=== PATIENT | female | born 1975 | race American Indian/Alaskan Native ===

== ENCOUNTER 2019-02-26 13:18 | Emergency (ER) | payer OTHER, SELFPAY ==
--- NOTE | 2019-02-26 15:34 | RAD ---
2 views right hip: 02/26/2019 COMPARISON: None HISTORY: Right hip pain, no history of trauma FINDINGS: Mild superior joint space narrowing. Mild lateral acetabular osteophyte formation. No acute fracture or dislocation. IMPRESSION: No acute findings.
== END 2019-02-26 15:49 | disposition home or self-care (01) ==
LOC: ERS 13:18
DX: M25.551 Pain in right hip (principal)

== ENCOUNTER 2022-10-04 10:01 | Inpatient (IN) | payer OTHER, SELFPAY ==
[~2022-10-04 10:01] MED LIST: Iopamidol-370 76% 500 ML MDV (1 ML CHARGE) ONE
[2022-10-04 11:14] LABS: SARS-CoV-2 NAA Rapid Test DETECTED (NotDetected)
[2022-10-04 12:12] LABS: #Monocytes 0.5 thou/uL (0.11-0.59); %Basophils 0.3 % (0.0-1.0); %Lymphocytes 8.1 % (21.0-51.0); %Monocytes 6.7 % (0.0-10.0); %Neutrophils 84.6 % (42.0-75.0); Hematocrit 39.6 % (36.0-47.0); Hemoglobin 13.5 g/dL (12.0-16.0); Mean Corpuscular HGB CONC 34.1 g/dL (32.0-36.0); Mean Corpuscular Hemoglobin 29.9 pg (27.0-31.0); Mean Corpuscular Volume 87.8 fl (78.0-98.0); Mean Platelet Volume 9.5 fL (7.4-10.4); Platelet Count 218 10x3/uL (130-400); RBC Distribution Width 12.7 % (11.5-14.5); Red Blood Cell (RBC) Count 4.51 mill/uL (4.20-5.40); White Blood Cell (WBC) Count 7.1 10x3/uL (4.8-10.8)
[2022-10-04 12:34] LABS: ALT (SGPT) 15 U/L (8-55); AST (SGOT) 21 U/L (5-34); Albumin 3.7 g/dL (3.5-5.0); Alkaline Phosphatase 97 U/L (40-110); Anion Gap 13 mmol/L (10-20); BUN (Urea Nitrogen) 10 mg/dL (7.0-18.7); Bilirubin, Total 0.4 mg/dL (0.2-1.2); Calc. Creatinine Clearance 0 mL/min (70-130); Calcium 9.2 mg/dL (7.8-10.44); Carbon Dioxide 26 mmol/L (22-29); Chloride 102 mmol/L (98-107); Estimated GFR 87; Globulin 3.1 g/dL (2.4-3.5); Glucose 99 mg/dL (70-105); Lipase 17 U/L (8-78); Potassium 3.5 mmol/L (3.5-5.1); Protein, Total 6.8 g/dL (6.0-8.3); Sodium 137 mmol/L (136-145)
[2022-10-04] MEDS ORDERED: Ketorolac Tromethamine 30 MG/ML VIAL ONE (12:40)
[2022-10-04] MEDS ORDERED: Ondansetron PF 4 MG/2 ML Vial ONE (12:40)
[2022-10-04] MEDS ORDERED: Dicyclomine 20 MG/2 ML VIAL ONE (12:40)
[2022-10-04 12:57] LABS: Bacteria/HPF None Seen HPF (None Seen); Bilirubin Negative (Negative); Blood, Urine Negative (Negative); CAUTI Indications for Culture Dysuria,urgency,freq; Clarity Clear (Clear); Glucose, Urine (Dipstick) Normal (Negative); Ketone, Urine Negative (Negative); Leukocyte Negative Leu/uL (Negative); Nitrite Negative (Negative); Protein, Urine (Dipstick) 100 mg/dL (Neg-Trace); RBC/HPF 0-3 HPF (0-3); Specific Gravity, Urine 1.045 (1.002-1.036); Squamous Epithelial 0-3 HPF (0-3); Urobilinogen 3 mg/dL (Less than 2)
[2022-10-04 13:00] LABS: Urine Culture Reflex No No
[2022-10-04] MEDS ORDERED: Morphine 4 MG/ML VIAL ONE (15:13)
[2022-10-04] MEDS ORDERED: metroNIDAZOLE 500 MG/100 ML BAG ONE (15:13)
[2022-10-04 16:36] VITALS: BMI 34.7
[2022-10-04] MEDS: Lactated Ringer's 1,000 ML IV SCH (17:35)
[2022-10-04] MEDS: Dicyclomine 20 MG TAB PO SCH ×2 (17:36→20:35)
[2022-10-04] MEDS: Acetaminophen 325 MG TAB PO PRN (17:43)
[2022-10-04] MEDS: Heparin 5,000 UNITS/ML VIAL SC SCH (20:35)
[2022-10-04] MEDS: Pantoprazole 40 MG VIAL IVP SCH (20:35)
[2022-10-04] MEDS: Ondansetron PF 4 MG/2 ML Vial IVP PRN (20:38)
[2022-10-04] MEDS: HYDROcodone/Acetaminophen 5/325 mg Tablet PO PRN (20:38)
[2022-10-04] MEDS ORDERED: Famotidine 20 MG TAB PO SCH (21:00)
[2022-10-04] MEDS: metroNIDAZOLE 500 MG in Premix Bag 1 BAG IVPB SCH (22:43)
[2022-10-05] MEDS: HYDROcodone/Acetaminophen 5/325 mg Tablet PO PRN ×4 (00:10→20:16)
[2022-10-05] MEDS: metroNIDAZOLE 500 MG in Premix Bag 1 BAG IVPB SCH ×3 (05:31→23:03)
[2022-10-05] MEDS: Ondansetron PF 4 MG/2 ML Vial IVP PRN ×3 (05:31→20:14)
[2022-10-05] MEDS: Lactated Ringer's 1,000 ML IV SCH ×3 (05:31→23:03)
[2022-10-05 06:48] LABS: Hematocrit 32.1 % (36.0-47.0); Hemoglobin 10.7 g/dL (12.0-16.0); Mean Corpuscular HGB CONC 33.3 g/dL (32.0-36.0); Mean Corpuscular Volume 89.9 fl (78.0-98.0); Mean Platelet Volume 10.1 fL (7.4-10.4); Platelet Count 207 10x3/uL (130-400); RBC Distribution Width 12.6 % (11.5-14.5); Red Blood Cell (RBC) Count 3.57 mill/uL (4.20-5.40); White Blood Cell (WBC) Count 7.6 10x3/uL (4.8-10.8)
[2022-10-05 07:02] LABS: Delete Auto Diff?? YES; Manual Diff?? YES
[2022-10-05 07:10] LABS: Anion Gap 10 mmol/L (10-20); BUN (Urea Nitrogen) 7 mg/dL (7.0-18.7); Calc. Creatinine Clearance 106 mL/min (70-130); Calcium 8.1 mg/dL (7.8-10.44); Carbon Dioxide 25 mmol/L (22-29); Chloride 104 mmol/L (98-107); Estimated GFR 81; Glucose 111 mg/dL (70-105); Potassium 3.2 mmol/L (3.5-5.1); Sodium 136 mmol/L (136-145)
[2022-10-05 07:30] LABS: Band 44 % (5-11); CellaVision Operator ID LAB.KB; Lymphocytes 10 % (21-51); Monocytes 9 % (0-10); Myelocyte 1 % (0-0); Neutrophil 35 % (42-75); Platelet Adequacy Comment Platelets Normal; Polychromasia SLIGHT = 2-3 cells HPF (0-2); Smudge Cells 12.6 %; Total Cell Count 103
[2022-10-05] MEDS ORDERED: Potassium Chloride 20 MEQ TAB PO SCH (08:00)
[2022-10-05] MEDS: Zinc Sulfate 220 MG CAP PO SCH (08:58)
[2022-10-05] MEDS: Pantoprazole 40 MG VIAL IVP SCH ×2 (08:58→20:15)
[2022-10-05] MEDS: Dicyclomine 20 MG TAB PO SCH ×4 (08:58→20:14)
[2022-10-05] MEDS: Heparin 5,000 UNITS/ML VIAL SC SCH ×2 (08:58→20:15)
[2022-10-05] MEDS: Ascorbic Acid 500 mg Chewable Tablet PO SCH (08:58)
[2022-10-05] MEDS: Cholecalciferol 1,000 UNITS (25 MCG) TAB PO SCH (08:58)
[2022-10-05] MEDS: Acetaminophen 325 MG TAB PO PRN (13:03)
[2022-10-05] MEDS ORDERED: Metoclopramide HCl 10 MG/2 ML VIAL IVP SCH (23:00)
[2022-10-06] MEDS: metroNIDAZOLE 500 MG in Premix Bag 1 BAG IVPB SCH ×3 (06:06→21:55)
[2022-10-06] MEDS: Ondansetron PF 4 MG/2 ML Vial IVP PRN ×2 (06:06→21:55)
[2022-10-06] MEDS: Acetaminophen 325 MG TAB PO PRN ×2 (08:23→12:09)
[2022-10-06] MEDS: Dicyclomine 20 MG TAB PO SCH ×4 (08:26→20:59)
[2022-10-06] MEDS: Ascorbic Acid 500 mg Chewable Tablet PO SCH (08:26)
[2022-10-06] MEDS: Zinc Sulfate 220 MG CAP PO SCH (08:27)
[2022-10-06] MEDS: Pantoprazole 40 MG VIAL IVP SCH ×2 (08:27→20:59)
[2022-10-06] MEDS: Heparin 5,000 UNITS/ML VIAL SC SCH ×2 (08:27→20:59)
[2022-10-06] MEDS: Cholecalciferol 1,000 UNITS (25 MCG) TAB PO SCH (08:27)
[2022-10-06 09:31] LABS: #Eosinphils 0.1 thou/uL (0.0-0.7); #Monocytes 0.6 thou/uL (0.11-0.59); #Neutrophils 5.1 thou/uL (1.40-6.50); %Basophils 0.3 % (0.0-1.0); %Eosinophils 1.4 % (0.0-10.0); %Lymphocytes 17.4 % (21.0-51.0); %Monocytes 8.8 % (0.0-10.0); %Neutrophils 71.7 % (42.0-75.0); Hematocrit 31.9 % (36.0-47.0); Hemoglobin 10.6 g/dL (12.0-16.0); Mean Corpuscular HGB CONC 33.2 g/dL (32.0-36.0); Mean Corpuscular Hemoglobin 30.1 pg (27.0-31.0); Mean Corpuscular Volume 90.6 fl (78.0-98.0); Mean Platelet Volume 9.7 fL (7.4-10.4); Platelet Count 222 10x3/uL (130-400); Red Blood Cell (RBC) Count 3.52 mill/uL (4.20-5.40); White Blood Cell (WBC) Count 7.1 10x3/uL (4.8-10.8)
[2022-10-06 09:55] LABS: Anion Gap 11 mmol/L (10-20); BUN (Urea Nitrogen) 6 mg/dL (7.0-18.7); Calc. Creatinine Clearance 111 mL/min (70-130); Calcium 8.6 mg/dL (7.8-10.44); Carbon Dioxide 26 mmol/L (22-29); Chloride 104 mmol/L (98-107); Estimated GFR 86; Glucose 147 mg/dL (70-105); Potassium 3.4 mmol/L (3.5-5.1); Sodium 138 mmol/L (136-145)
[2022-10-06] MEDS: Ondansetron ODT 4 MG TAB PO PRN ×2 (13:59→21:55)
[2022-10-06] MEDS: Lactated Ringer's 1,000 ML IV SCH ×2 (13:59→16:45)
[2022-10-06] MEDS: Fioricet 325/50/40 mg Tablet PO PRN ×2 (16:43→22:12)
[2022-10-06] MEDS ORDERED: Metoclopramide HCl 10 MG/2 ML VIAL IVP SCH (23:15)
[2022-10-07] MEDS: Acetaminophen 325 MG TAB PO PRN (01:46)
[2022-10-07] MEDS: HYDROcodone/Acetaminophen 5/325 mg Tablet PO PRN ×4 (03:40→20:51)
[2022-10-07] MEDS: metroNIDAZOLE 500 MG in Premix Bag 1 BAG IVPB SCH ×3 (05:23→21:52)
[2022-10-07] MEDS: Ondansetron PF 4 MG/2 ML Vial IVP PRN ×3 (05:23→17:09)
[2022-10-07] MEDS: Lactated Ringer's 1,000 ML IV SCH ×3 (05:24→21:53)
[2022-10-07] MEDS: Fioricet 325/50/40 mg Tablet PO PRN (05:25)
[2022-10-07] MEDS: Heparin 5,000 UNITS/ML VIAL SC SCH ×2 (08:48→20:36)
[2022-10-07] MEDS: Pantoprazole 40 MG VIAL IVP SCH ×2 (08:48→20:36)
[2022-10-07] MEDS: Dicyclomine 20 MG TAB PO SCH ×4 (08:48→20:36)
[2022-10-07] MEDS: Ascorbic Acid 500 mg Chewable Tablet PO SCH (08:48)
[2022-10-07] MEDS: Zinc Sulfate 220 MG CAP PO SCH (08:48)
[2022-10-07] MEDS: Cholecalciferol 1,000 UNITS (25 MCG) TAB PO SCH (08:48)
[2022-10-07 09:41] LABS: #Eosinphils 0.2 thou/uL (0.0-0.7); #Monocytes 0.6 thou/uL (0.11-0.59); #Neutrophils 4.8 thou/uL (1.40-6.50); %Basophils 0.4 % (0.0-1.0); %Eosinophils 2.2 % (0.0-10.0); %Lymphocytes 20.1 % (21.0-51.0); %Monocytes 8.4 % (0.0-10.0); %Neutrophils 67.2 % (42.0-75.0); Hematocrit 31.3 % (36.0-47.0); Hemoglobin 10.6 g/dL (12.0-16.0); Mean Corpuscular HGB CONC 33.9 g/dL (32.0-36.0); Mean Corpuscular Volume 88.7 fl (78.0-98.0); Mean Platelet Volume 9.9 fL (7.4-10.4); Platelet Count 220 10x3/uL (130-400); RBC Distribution Width 12.8 % (11.5-14.5); Red Blood Cell (RBC) Count 3.53 mill/uL (4.20-5.40); White Blood Cell (WBC) Count 7.2 10x3/uL (4.8-10.8)
[2022-10-07 10:09] LABS: Anion Gap 11 mmol/L (10-20); BUN (Urea Nitrogen) 6 mg/dL (7.0-18.7); Calc. Creatinine Clearance 106 mL/min (70-130); Calcium 8.6 mg/dL (7.8-10.44); Carbon Dioxide 26 mmol/L (22-29); Chloride 103 mmol/L (98-107); Estimated GFR 81; Glucose 142 mg/dL (70-105); Potassium 3.3 mmol/L (3.5-5.1); Sodium 137 mmol/L (136-145)
[2022-10-07] MEDS ORDERED: Iopamidol-370 76% 500 ML MDV (1 ML CHARGE) ONE (10:14)
[2022-10-07 17:42] LABS: Campy jejuni + coli by PCR Negative (Negative); STEC Shiga Toxin 1+2 Negative (Negative); Salmonella spp. by PCR POSITIVE (Negative); Shigella spp + EIEC by PCR Negative (Negative)
[2022-10-08] MEDS: Ondansetron PF 4 MG/2 ML Vial IVP PRN ×4 (00:25→22:52)
[2022-10-08] MEDS: HYDROcodone/Acetaminophen 5/325 mg Tablet PO PRN ×4 (01:13→20:50)
[2022-10-08] MEDS: metroNIDAZOLE 500 MG in Premix Bag 1 BAG IVPB SCH (05:12)
[2022-10-08 06:58] LABS: #Eosinphils 0.2 thou/uL (0.0-0.7); #Monocytes 0.6 thou/uL (0.11-0.59); #Neutrophils 3.2 thou/uL (1.40-6.50); %Basophils 0.7 % (0.0-1.0); %Eosinophils 3.1 % (0.0-10.0); %Lymphocytes 27.5 % (21.0-51.0); %Monocytes 10.2 % (0.0-10.0); %Neutrophils 54.6 % (42.0-75.0); Hematocrit 31.8 % (36.0-47.0); Hemoglobin 10.5 g/dL (12.0-16.0); Mean Corpuscular Volume 90.9 fl (78.0-98.0); Mean Platelet Volume 9.8 fL (7.4-10.4); Platelet Count 237 10x3/uL (130-400); RBC Distribution Width 12.7 % (11.5-14.5); White Blood Cell (WBC) Count 5.9 10x3/uL (4.8-10.8)
[2022-10-08 07:23] LABS: ALT (SGPT) 21 U/L (8-55); AST (SGOT) 29 U/L (5-34); Albumin 3.3 g/dL (3.5-5.0); Alkaline Phosphatase 146 U/L (40-110); Anion Gap 12 mmol/L (10-20); BUN (Urea Nitrogen) 5 mg/dL (7.0-18.7); Bilirubin, Direct 0.1 mg/dL (0.1-0.3); Bilirubin, Total 0.3 mg/dL (0.2-1.2); Calc. Creatinine Clearance 110 mL/min (70-130); Calcium 8.7 mg/dL (7.8-10.44); Carbon Dioxide 28 mmol/L (22-29); Chloride 104 mmol/L (98-107); Estimated GFR 84; Glucose 90 mg/dL (70-105); Potassium 3.6 mmol/L (3.5-5.1); Protein, Total 5.9 g/dL (6.0-8.3); Sodium 140 mmol/L (136-145)
[2022-10-08] MEDS: Heparin 5,000 UNITS/ML VIAL SC SCH ×2 (08:32→20:51)
[2022-10-08] MEDS: Cholecalciferol 1,000 UNITS (25 MCG) TAB PO SCH (08:33)
[2022-10-08] MEDS: Lactated Ringer's 1,000 ML IV SCH ×2 (08:33→20:45)
[2022-10-08] MEDS: Ascorbic Acid 500 mg Chewable Tablet PO SCH (08:33)
[2022-10-08] MEDS: Pantoprazole 40 MG VIAL IVP SCH ×2 (08:33→20:52)
[2022-10-08] MEDS: Zinc Sulfate 220 MG CAP PO SCH (08:33)
[2022-10-08] MEDS: Dicyclomine 20 MG TAB PO SCH ×4 (08:33→20:51)
[2022-10-08] MEDS: Fioricet 325/50/40 mg Tablet PO PRN ×2 (12:48→22:52)
[2022-10-09] MEDS: HYDROcodone/Acetaminophen 5/325 mg Tablet PO PRN ×2 (00:52→05:00)
[2022-10-09] MEDS: Fioricet 325/50/40 mg Tablet PO PRN ×2 (03:07→10:54)
[2022-10-09] MEDS: Ondansetron PF 4 MG/2 ML Vial IVP PRN ×2 (05:00→08:46)
[2022-10-09] MEDS: Lactated Ringer's 1,000 ML IV SCH (06:30)
[2022-10-09] MEDS: Cholecalciferol 1,000 UNITS (25 MCG) TAB PO SCH (08:34)
[2022-10-09] MEDS: Ascorbic Acid 500 mg Chewable Tablet PO SCH (08:34)
[2022-10-09] MEDS: Dicyclomine 20 MG TAB PO SCH ×2 (08:34→12:40)
[2022-10-09] MEDS: Zinc Sulfate 220 MG CAP PO SCH (08:34)
[2022-10-09] MEDS: Heparin 5,000 UNITS/ML VIAL SC SCH (08:34)
[2022-10-09] MEDS: Pantoprazole 40 MG VIAL IVP SCH (08:35)
[2022-10-09] MEDS: Acetaminophen 325 MG TAB PO PRN (08:45)
[2022-10-09] MEDS ORDERED: SUMAtriptan Succinate 6 MG/0.5 ML VIAL SC SCH (10:30)
[2022-10-09 12:39] VITALS: BP 147/88; TEMP 98.3
== END 2022-10-09 14:04 | disposition home or self-care (01) | DRG 371 ==
LOC: ERS 10:01 → T4-A 16:01
PROVIDERS: ADMIT Hospitalist; ATTEND Internal Medicine
PROC: 8E0ZXY6 Isolation (ICD-10-PCS; principal; 2022-10-04)
DX: A04.8 Other specified bacterial intestinal infections (principal); J12.82 Pneumonia due to coronavirus disease 2019; U07.1 COVID-19; E87.6 Hypokalemia; Z79.899 Other long term (current) drug therapy; Z79.82 Long term (current) use of aspirin; Z88.6 Allergy status to analgesic agent; Z88.8 Allergy status to other drugs, medicaments and biological substances; Z90.710 Acquired absence of both cervix and uterus; Z90.5 Acquired absence of kidney; Z80.1 Family history of malignant neoplasm of trachea, bronchus and lung; Z83.3 Family history of diabetes mellitus; Z98.51 Tubal ligation status; E86.0 Dehydration; Z90.721 Acquired absence of ovaries, unilateral
CPT/HCPCS: 36415; 36416; 71045; 74177; 80048; 80053; 80076; 81001; 82274; 83690; 85025; 87040; 87328; 87329; 87337; 87505; 96361; 96365; 96372; 96375; C9113; J0744; J1644; J1885; J2270; J2405; J2765; J3030; J7120; Q0162; Q9967